=== PATIENT | female | born 1965 | race Caucasian/White ===

== ENCOUNTER 2021-08-27 15:18 | Outpatient (CLI) | payer BC | END 2021-08-27 15:19 | disposition home or self-care (01) | LOC: CSHCT 15:18 | PROVIDERS: ATTEND Student in an Organized Health Care Education/Training Program | DX: J32.9 Chronic sinusitis, unspecified (principal); J32.0 Chronic maxillary sinusitis ==

== ENCOUNTER 2024-07-21 08:57 | Outpatient (CLI) | payer OTHER | END 2024-07-21 08:58 | disposition home or self-care (01) | LOC: CSHMAMMO 08:57 | PROVIDERS: ATTEND Family Medicine | DX: Z12.31 Encounter for screening mammogram for malignant neoplasm of breast (principal); Z98.82 Breast implant status | CPT/HCPCS: 77063; 77067 ==